=== PATIENT | female | born 1985 | race Caucasian/White ===

== ENCOUNTER 2019-02-20 20:35 | Day surgery (SDC) | payer OTHER ==
[2019-02-20 21:12] VITALS: BP 125/78; TEMP 98.1; BMI 26.7
--- NOTE | 2019-02-21 00:20 | PRG ---
DATE OF SERVICE: 02/20/[address] Adrianne Goodrich. CHIEF COMPLAINT: Abdominal pains. HISTORY OF PRESENT ILLNESS: Patient is a 34-year-old G4, P3 female with an intrauterine at 35 weeks and 3 days, who is presenting today with increased lower abdominal pain that she reports began after walking 4 miles with her daughter, which is not something she is accustomed to doing. Patient reports her daughter is getting ready for running a half-marathon next year and has recently started training. The patient reports that the pains are sharp and are associated with activity and movement in part. She also reports that she has had on occasion a couple of times, 2 to 3 times an hour abdominal pain associated with tightening of her belly. Patient denies any vaginal bleeding or leakage of fluid. She denies any urinary urgency. She denies fever, fall, headache, chest pain, shortness of breath, nausea, vomiting, diarrhea, or constipation. She denies any new rashes, hip problems, knee problems, or muscle weakness. PAST MEDICAL HISTORY: Negative. PAST SURGICAL HISTORY: She has had one prior . OBSTETRIC HISTORY: She has had preeclampsia with her prior . SOCIAL HISTORY: Denies drug, alcohol, or tobacco use. ALLERGIES: NO KNOWN DRUG ALLERGIES. MEDICATIONS: vitamins. OB LABS: Blood type is O positive. Antibody screen, hepatitis B surface antigen is negative. Glucose tolerance test is 164. GC and chlamydia negative. She is rubella immune. Hepatitis B surface antigen nonreactive. HIV nonreactive. Syphilis nonreactive. Drug screen is negative. Antibody screen is negative. REVIEW OF SYSTEMS: Per HPI. PHYSICAL EXAMINATION: VITAL SIGNS: Blood pressure 125/78, pulse of 88, respiratory rate 18, saturating 98% on room air, and temperature 98.1. GENERAL: She appears to be in no acute distress. She is alert, oriented, cooperative, and pleasant to interact with. HEAD: Normocephalic and atraumatic. LUNGS: Clear to auscultation bilaterally. HEART: Has regular rate and rhythm. ABDOMEN: Gravid, soft. She has some mild tenderness to palpation in her lower uterus. It is mild in nature. EXTREMITIES: Nontender and nonedematous. No CVA tenderness. CERVICAL EXAM: Per nursing staff is closed, thick, and high. heart tracing performed and NST for abdominal pain and . Baseline is noted to be in the 120s with moderate long-term variability, positive 15 x 15 accelerations, no decelerations. Patient is experiencing some contraction, irregular in nature. ASSESSMENT AND PLAN: Patient is a 34-year-old G4, P3 female with an intrauterine at 35 weeks and 3 days experiencing contractions with musculoskeletal pains in . No evidence of labor at this time. Patient has a reactive NST with a category I tracing of her baby. Patient has been given reassurance and been discharged home with instructions to follow up with her primary OB as scheduled. Job ID: [id number]
== END 2019-02-20 22:11 | disposition home or self-care (01) ==
LOC: L&D/OP 20:35
PROVIDERS: ATTEND Obstetrics & Gynecology
DX: O47.03 False labor before 37 completed weeks of gestation, third trimester (principal); O26.893 Other specified pregnancy related conditions, third trimester; R10.9 Unspecified abdominal pain; Z3A.35 35 weeks gestation of pregnancy; O34.219 Maternal care for unspecified type scar from previous cesarean delivery
CPT/HCPCS: 99282

== ENCOUNTER 2019-03-17 07:26 | Day surgery (SDC) | payer OTHER ==
[2019-03-17 07:56] VITALS: BP 123/76; TEMP 98.4; BMI 27.8
--- NOTE | 2019-03-17 08:44 | PDOC.LDHP ---
Labor and Delivery H&P HPI: Patient of Dr Goodrich Time: 0840 Triage CC: CTX HPI: 34 yo at 39 weeks with last delivery for CS for FTP (by her acount) here with irreg CTX. Desires TOLAC if able. Has repeat CS next week if not in spoont labor. No VB, no LOF, good FM Review of Systems: complete ROS done and as per HPI Current gestational age (weeks): 39 Dating criteria: last menstrual period Grav: 4 Para: 3 Current complications: other (Prior CS with last) Allergies/Adverse Reactions: Allergies Allergy/AdvReac Type Severity Reaction Status Date / Time No Known Allergies Allergy Verified 03/17/19 07:57 Social history: other (CS x 1 with last delivery) - Physical Exam Vital signs reviewed and normal: yes General: NAD Heart: RRR Lungs: CTAB Abdomen: gravid Extremeties: no edema FHT: category 1 [place] contractions every: every 3-5 - Vaginal Exam cm dilated: 1 Effacement: 50% Station: -1 - Assessment Latent labor at full term, cleared for TOLAC if laboring - Plan Plan: observation in L&D (TOLAC reviewed with her. Agrees for TOLAC if able. Possible uterine rupture or TOLAC failure also reviewed with her. As she has prior SVDs, TOLAC has good chance of functioning. She was cleared for TOLAC by her physician (Kp). Labor obs.)
--- NOTE | 2019-03-17 10:27 | PDOC.EVN ---
Event Note - Event Note Event Note: L&D Follow up Time: 1027 I have seen and reviewed care with the patient and spouse at bedside. Strip reviewed: reactive and still with CTX every 3-5 minutes or so Exam unchanged at 1cm I suspect latent labor I discussed (with RN in room) options of continued inhouse OBS as 23 hours ( with admit if changes) or outpatient care. After detailed discussion, patient opts for outpatient care. I discussed TOLAC with her again, and aware of potentioal complications. I encourggaed her to return JOANN if CTX incrfease or worsen, or if VB or LOF Vitals WNL All options reviewed in detail and I am OK with outpatient care as still 1cm and cleared for TOLAC by first NUNEZ.
== END 2019-03-17 10:30 | disposition home or self-care (01) ==
LOC: L&D/OP 07:26
PROVIDERS: ATTEND Obstetrics & Gynecology
DX: Z34.83 Encounter for supervision of other normal pregnancy, third trimester (principal); Z3A.39 39 weeks gestation of pregnancy; Z79.899 Other long term (current) drug therapy; Z98.891 History of uterine scar from previous surgery
CPT/HCPCS: 99283

== ENCOUNTER 2019-03-19 05:12 | Inpatient (IN) | payer OTHER ==
[2019-03-19] MEDS ORDERED: Lactated Ringer's 1,000 ML IV SCH ×2 (05:25→23:30)
[2019-03-19] MEDS ORDERED: Promethazine HCl 25 MG/ML VIAL IM PRN ×3 (05:25→08:20)
[2019-03-19] MEDS ORDERED: CEFAZOLIN 2 GM in Premix Bag 1 BAG IVPB SCH (05:25)
[2019-03-19] MEDS ORDERED: Bicitra 30 ML UDCUP PO SCH (05:25)
[2019-03-19] MEDS ORDERED: Ondansetron PF 4 MG/2 ML Vial IVP PRN (05:25)
[2019-03-19 05:45] VITALS: BMI 27.8
[2019-03-19 05:58] LABS: Hemoglobin 10.1 g/dL (12.0-16.0); Mean Corpuscular HGB CONC 33.2 g/dL (32.0-36.0); Mean Corpuscular Hemoglobin 26.5 pg (27.0-31.0); Mean Corpuscular Volume 79.8 fL (78.0-98.0); Mean Platelet Volume 7.9 fL (7.4-10.4); Platelet Count 209 thou/uL (130-400); RBC Distribution Width 14.2 % (11.5-14.5); White Blood Cell (WBC) Count 10.2 thou/uL (4.8-10.8)
[2019-03-19 06:30] LABS: Syphilis Antibody Nonreactive (Nonreactive); Syphilis Antibody Index 0.04 S/CO (<1.00 Non-Reactive)
[2019-03-19 06:39] LABS: HBSAg Index 0.31 S/CO (0-0.99); Hep B Surf Ag Non-Reactive S/CO (NonReactive)
[2019-03-19] MEDS ORDERED: MORPHINE 5 MG/10 ML PF VIAL ONE (07:08)
[2019-03-19] MEDS ORDERED: Fentanyl 100 MCG/2 ML VIAL ONE (07:08)
[2019-03-19] MEDS ORDERED: Metoclopramide HCl 10 MG/2 ML VIAL ONE ×2 (07:09→14:28)
[2019-03-19] MEDS ORDERED: Oxytocin 10 UNITS/ML VIAL ONE ×2 (07:09→08:15)
[2019-03-19] MEDS ORDERED: Ketorolac Tromethamine 30 MG/ML VIAL ONE ×2 (07:09→14:28)
[2019-03-19] MEDS ORDERED: Ondansetron PF 4 MG/2 ML Vial ONE ×3 (07:09→14:28)
[2019-03-19] MEDS ORDERED: PHENYLEPHRINE-NS 100 MCG/ML 10 ML SYRINGE ONE ×2 (07:09→14:28)
[2019-03-19] MEDS ORDERED: ePHEDrine/0.9% NaCl/PF SYRINGE 50 mg/10 ml ONE (07:09)
[2019-03-19] MEDS ORDERED: Dexamethasone 4 mg/ml Vial ONE (07:09)
[2019-03-19] MEDS ORDERED: Lidocaine 2% PF Inj 2 ML VIAL ONE (07:12)
[2019-03-19] MEDS ORDERED: Naloxone HCl 0.4 mg/ml Vial IV PRN (08:00)
[2019-03-19] MEDS ORDERED: L&D-Morphine 4 MG/ML VIAL SLOW IVP PRN (08:00)
[2019-03-19] MEDS ORDERED: HYDROmorphone 2 MG/ML VIAL SLOW IVP PRN (08:00)
[2019-03-19] MEDS ORDERED: Eucerin (Mineral Oil/Petrolatum,White) 30 gm Jar TOP PRN (08:00)
[2019-03-19] MEDS ORDERED: Meperidine HCl/PF 25 MG/ML VIAL SLOW IVP PRN (08:00)
[2019-03-19] MEDS ORDERED: Naloxone HCl 0.4 mg/ml Vial IVP PRN ×2 (08:00)
[2019-03-19] MEDS ORDERED: Promethazine HCl 25 MG SUPP PR PRN (08:00)
[2019-03-19] MEDS ORDERED: Ketorolac Tromethamine 30 MG/ML VIAL IVP SCH (08:00)
[2019-03-19] MEDS ORDERED: diphenhydrAMINE 50 MG/ML VIAL IVP PRN (08:00)
[2019-03-19] MEDS ORDERED: Communication Order-Pharmacy FS SCH (08:00)
[2019-03-19] MEDS ORDERED: Ondansetron HCl/PF 4 MG/2 ML Vial IVP PRN (08:00)
[2019-03-19] MEDS ORDERED: Morphine 2 MG/ML SYRINGE SLOW IVP PRN (08:01)
[2019-03-19] MEDS ORDERED: Acetaminophen 325 MG TAB PO PRN (08:20)
[2019-03-19] MEDS ORDERED: Adacel (T-DAP) 0.5 ML SYRINGE IM ONE (08:20)
[2019-03-19] MEDS ORDERED: Simethicone Chewable 80 MG TAB PO PRN (08:20)
[2019-03-19] MEDS ORDERED: Lanolin Ointment 7 GM TUBE TOP PRN (08:20)
[2019-03-19] MEDS ORDERED: Bisacodyl 10 MG SUPP PR PRN (08:20)
[2019-03-19] MEDS ORDERED: Meperidine HCl/PF 25 MG/ML VIAL ONE (09:43)
[2019-03-19] MEDS: Ketorolac Tromethamine 30 MG/ML VIAL IVP SCH ×3 (11:38→19:42)
[2019-03-19] MEDS: Prenatal Vitamin 1 TAB PO SCH (11:39)
[2019-03-19] MEDS: Docusate Calcium (SURFAK) 240 MG CAP PO SCH ×2 (11:39→19:42)
--- NOTE | 2019-03-19 12:19 | OP ---
DATE OF PROCEDURE: 03/19/2019 PREOPERATIVE DIAGNOSES: 1. A 34-year-old white female G4, P3, at 39 to 40 weeks gestation. 2. Prior section, desires repeat. POSTOPERATIVE DIAGNOSES: 1. A 34-year-old white female G4, P3, at 39 to 40 weeks gestation. 2. Prior section, desires repeat. PROCEDURE PERFORMED: Repeat low transverse section without extension. ALLEY WORKER SURGEON: Ann Marie Lucero PA-C ANESTHESIA: Spinal block by Dr. Amador. ESTIMATED BLOOD LOSS: 500 mL. COUNTS: Correct x2. ANTIBIOTICS: 2 g Ancef, on-call to OR. FINDINGS: 1. Vigorous female infant, vertex presentation, Apgars 8 and 9 with weight 5 pounds 15 ounces. 2. Clear amniotic fluid noted. 3. Normal-appearing uterus, fallopian tubes, and ovaries. 4. Clear urine present in Dick catheter postprocedure. DISPOSITION: Recovery room, stable. DESCRIPTION OF PROCEDURE: The patient previously received informed consent in regard to surgery. She was taken back to the operating room, where she received a spinal block without complication. She was then placed in supine position, prepped and draped in usual sterile fashion. Dick catheter and PlexiPulses had been placed. A Pfannenstiel incision was made at the previous scar site, that was carried on the fascia. Fascia was then nicked in the midline. Fascial incision was extended bilaterally with the use of curved Carrillo scissors. The rectus fascia was then dissected superiorly and inferiorly off the rectus muscle bellies. The rectus muscle bellies were divided in the midline. Peritoneal cavity was entered and peritoneal incision was extended. Stewart O retractor was then placed and a 2 cm hysterotomy incision was made above the reflection of the vesicouterine peritoneum. This was extended via finger fractionation. The baby was delivered in the vertex presentation after the amniotic bag was ruptured with clear fluid. The mouth and nares of the were bulb suctioned on the abdomen. The cord was doubly clamped and cut, handed to the pediatric staff in attendance. Usual cord blood was obtained. Placenta was then manually extracted and the uterus was cleared of any remaining placental fragments. The hysterotomy incision was then closed in a running locking fashion with #1 Monocryl suture. Good hemostasis was confirmed. The pelvis was then irrigated and again hysterotomy incision was inspected and noted to be hemostatic. The Stewart O retractor was removed. Again, the pelvis was inspected while the hysterotomy was inside in the lower pelvic regions and no evidence of any active bleeding was noted. The rectus muscle bellies were inspected and noted to be hemostatic prior to fascial closure. The fascia was closed with 0 PDS suture x2 in a running continuous fashion. Subcutaneous tissue was irrigated and noted to be hemostatic prior to skin closure. The skin was closed with a 4-0 subcuticular Monocryl suture along with Dermabond. The surgery was terminated. No anesthetic or surgical complications occurred. Job ID: [id number]
[2019-03-19] MEDS ORDERED: Dexamethasone 20 MG/5 ML VIAL ONE (14:28)
[2019-03-19] MEDS ORDERED: ePHEDrine 50 MG/ML VIAL ONE (14:28)
[2019-03-19] MEDS: Ferrous Sulfate 325 MG TAB PO SCH (17:00)
[2019-03-19] MEDS ORDERED: traMADol HCl 50 MG TAB PO PRN (20:00)
[2019-03-19] MEDS: Ondansetron PF 4 MG/2 ML Vial IVP PRN (22:55)
[2019-03-20] MEDS: diphenhydrAMINE 25 MG CAP PO PRN (00:55)
[2019-03-20] MEDS: Ketorolac Tromethamine 30 MG/ML VIAL IVP SCH ×2 (03:18→09:25)
[2019-03-20 05:26] LABS: Hemoglobin 8.2 g/dL (12.0-16.0); Mean Corpuscular HGB CONC 33.5 g/dL (32.0-36.0); Mean Corpuscular Volume 80.7 fL (78.0-98.0); Mean Platelet Volume 7.7 fL (7.4-10.4); Platelet Count 181 thou/uL (130-400); RBC Distribution Width 14.3 % (11.5-14.5); Red Blood Cell (RBC) Count 3.02 mill/uL (4.20-5.40)
--- NOTE | 2019-03-20 07:53 | PDOC.PP ---
Post Progress Note Post Day #: 1 PO intake tolerated: yes Flatus: yes Ambulation: yes Vital Signs (12 hours) Temp Pulse Resp BP Pulse Ox 03/20/19 06:00 20 03/20/19 03:20 97.7 F 94 18 111/69 98 03/20/19 00:40 97.6 F 106 H 20 130/78 97 03/20/19 00:00 98.3 F 76 18 122/70 03/19/19 22:34 18 03/19/19 20:00 98.1 F 98 18 116/82 96 Weight Weight 157 lb - Physical Examination Abdominal: + bowel sounds, lochia, no distention, appropriately TTP Result Diagrams: 03/20/19 05:02 Additional Labs: Post Labs Blood Type O POSITIVE 03/19/19 05:48 Hep Bs Antigen Non-Reactive S/CO (NonReactive) 03/19/19 05:47 - Assessment/Plan Post op day 1-repeat c section..Doing well. Routine care.
[2019-03-20] MEDS: Prenatal Vitamin 1 TAB PO SCH (09:24)
[2019-03-20] MEDS: Ferrous Sulfate 325 MG TAB PO SCH ×2 (09:25→21:19)
[2019-03-20] MEDS: Docusate Calcium (SURFAK) 240 MG CAP PO SCH ×2 (09:25→21:19)
[2019-03-20] MEDS ORDERED: Sodium Chloride 0.9% 10 ML ONE (13:08)
[2019-03-20] MEDS: Ondansetron PF 4 MG/2 ML Vial IVP PRN (13:13)
[2019-03-20] MEDS: Ibuprofen 800 MG TAB PO SCH ×2 (14:50→21:19)
[2019-03-21] MEDS: diphenhydrAMINE 25 MG CAP PO PRN (02:32)
[2019-03-21] MEDS: Ibuprofen 800 MG TAB PO SCH ×2 (05:38→13:35)
[2019-03-21 08:11] VITALS: BP 109/60; TEMP 98.3
--- NOTE | 2019-03-21 08:13 | PDOC.PP ---
Post Progress Note Post Day #: 2 PO intake tolerated: yes Flatus: yes Ambulation: yes Vital Signs (12 hours) Temp Pulse Resp BP BP Pulse Ox 03/21/19 08:10 98.3 F 90 20 109/60 96 03/21/19 00:00 97.8 F 80 20 109/67 Weight Weight 157 lb - Physical Examination Abdominal: + bowel sounds, lochia, no distention, appropriately TTP Result Diagrams: 03/20/19 05:02 Additional Labs: Post Labs Blood Type O POSITIVE 03/19/19 05:48 Hep Bs Antigen Non-Reactive S/CO (NonReactive) 03/19/19 05:47 - Assessment/Plan Doing well post op day 2. D/c home when baby is released. F/u in 6 weeks.
[2019-03-21] MEDS ORDERED: Acetaminophen/Codeine 30-300mg Tablet PO PRN ×2 (09:08)
[2019-03-21] MEDS: Ferrous Sulfate 325 MG TAB PO SCH (10:22)
[2019-03-21] MEDS: Prenatal Vitamin 1 TAB PO SCH (10:22)
[2019-03-21] MEDS: Docusate Calcium (SURFAK) 240 MG CAP PO SCH (10:22)
== END 2019-03-21 15:40 | disposition home or self-care (01) | DRG 788 ==
LOC: L&D 05:12 → 3SW 11:07 → EDSTATUS 03-24 14:34
PROVIDERS: ADMIT Obstetrics & Gynecology; ATTEND Obstetrics & Gynecology
PROC: 10D00Z1 Extraction of Products of Conception, Low, Open Approach (ICD-10-PCS; principal; 2019-03-19)
DX: O34.211 Maternal care for low transverse scar from previous cesarean delivery (principal); O48.0 Post-term pregnancy; Z3A.40 40 weeks gestation of pregnancy; Z37.0 Single live birth
CPT/HCPCS: 36415; 51702; 85027; 86780; 86850; 86900; 86901; 87340; 99283; J0131; J0690; J1100; J1885; J2001; J2175; J2270; J2405; J2590; J2765; J3010; J3490; Q0163